=== PATIENT | male | born 1990 | race Caucasian/White ===

== ENCOUNTER 2023-11-08 01:12 | Emergency (ER) | payer OTHER ==
[~2023-11-08] VITALS: Ht 175.3 cm; Wt 79.4 kg
[2023-11-08] MEDS ORDERED: ONDANSETRON 4 MG/2 ML VIAL ONE ×2 (01:19→02:42)
[2023-11-08 01:27] LABS: BASOPHILS % (AUTO) 0.4 % (0.0-2.0); HEMATOCRIT 45.2 % (36.7-47.1); HEMOGLOBIN 14.9 g/dL (12.5-16.3); LYMPHOCYTES # (AUTO) 0.6 K/uL (0.8-4.8); LYMPHOCYTES % (AUTO) 4.2 % (20.5-51.5); MEAN CORPUSCULAR HEMOGLOBIN 25.9 uug (23.8-33.4); MEAN CORPUSCULAR HGB CONC 33 g/dL (32.5-36.3); MEAN CORPUSCULAR VOLUME 78.6 fL (73.0-96.2); MONOCYTES # (AUTO) 0.7 K/uL (0.1-1.30); MONOCYTES % (AUTO) 5.1 % (0.0-11.0); NEUTROPHILS # (AUTO) 12.5 K/uL (1.8-8.9); NEUTROPHILS % (AUTO) 90.3 % (38.5-71.5); PLATELET COUNT (AUTO) 297 K/uL (152-348); RED BLOOD CELL COUNT(AUTO) 5.75 MIL/uL (4.06-5.63); RED CELL DISTRIBUTION WIDTH 14.2 % (12.1-16.2); WHITE BLOOD COUNT (AUTO) 13.9 K/uL (3.6-10.2)
[2023-11-08] MEDS: IV NORMAL SALINE 1000 ML BAG IV ONE ×2 (01:31→02:10)
[2023-11-08] MEDS: ONDANSETRON 4 MG/2 ML VIAL IV ONE ×2 (01:31→02:46)
[2023-11-08 01:35] LABS: CALCIUM 8.8 mg/dL (8.5-10.1); POTASSIUM 3.7 mmol/L (3.5-5.1)
[2023-11-08 01:36] LABS: DIFFERENTIAL COMMENT 1
[2023-11-08 01:41] LABS: BILIRUBIN,DIRECT 0.3 mg/dL (0.0-0.2); BILIRUBIN,TOTAL 2.3 mg/dL (0.2-1.0); TOTAL PROTEIN, SERUM 8.6 g/dL (6.4-8.2)
[2023-11-08] MEDS ORDERED: ONDA4TAB11 PO (01:42)
[2023-11-08 03:03] VITALS: BP 129/85; TEMP 98; O2SAT 100
== END 2023-11-08 03:05 | disposition home or self-care (01) ==
LOC: ER 01:18
DX: R11.2 Nausea with vomiting, unspecified (principal); R19.7 Diarrhea, unspecified; Z79.899 Other long term (current) drug therapy; Z88.2 Allergy status to sulfonamides
CPT/HCPCS: 99284; 96374; 96361; 80076; 80048; 83690; 85025; 36415; 96376; J2405 ×2; J7040 ×2; A4606; A4663